=== PATIENT | male | born 1975 | race Caucasian/White ===

== ENCOUNTER → 2024-08-24 | Outpatient (CLI) | payer OTHER ==
[2024-08-24 16:29] LABS: BASOPHILS ABSOLUTE AUTO 0.05 K/mm3 (0.00-0.23); BASOPHILS PERCENT AUTO 1 % (0-2); EOSINOPHILS ABSOLUTE AUTO 0.15 K/mm3 (0.00-0.68); EOSINOPHILS PERCENT AUTO 3 % (0-6); Hemoglobin 14.2 g/dL (13.5-17.5); IMMATURE GRAN ABSOLUTE AUTO 0.02 K/mm3 (0.00-0.10); IMMATURE GRAN PERCENT AUTO 0 % (0-1); LYMPHOCYTES ABSOLUTE AUTO 1.62 K/mm3 (0.84-5.20); LYMPHOCYTES PERCENT AUTO 27 % (21-46); MONOCYTES ABSOLUTE AUTO 0.62 K/mm3 (0.16-1.47); MONOCYTES PERCENT AUTO 10 % (4-13); Mean Corpuscular HGB 31.1 pg (26.0-34.0); Mean Corpuscular HGB Conc 33.8 g/dL (31.5-36.5); Mean Corpuscular Volume 92 fL (80-100); Mean Platelet Volume 9.4 fL (9.1-12.4); NEUTROPHILS ABSOLUTE AUTO 3.59 K/mm3 (1.96-9.15); NEUTROPHILS PERCENT AUTO 59 % (41-73); Platelet Count 255 K/mm3 (150-400); RDW Coefficient Variation 13.5 % (11.7-14.2); RDW Standard Deviation 45.4 fL (35.1-46.3); Red Blood Cell Count 4.56 M/mm3 (4.30-5.90); White Blood Cell Count 6.05 K/mm3 (4.00-11.30)
[2024-08-24 16:44] LABS: Albumin, Blood 4.3 g/dL (3.4-5.0); Albumin/Globulin Ratio 1.3 (0.8-1.8); Bun/Creatinine Ratio 18.8 (12.0-20.0); Calcium, Blood 9.3 mg/dL (8.5-10.1); Creatinine, Blood 1.01 mg/dL (0.60-1.20); Globulin, Blood 3.3 g/dL (2.2-4.0); Total Protein, Blood 7.6 g/dL (6.4-8.2)
[2024-08-26 18:36] LABS: ANTI-NUCLEAR AB ANA,IGG ELISA None Detected (None Detected)
== END ==
LOC: LAB SHORT 16:24 → LAB 16:24
PROVIDERS: Physician Assistant
DX: M25.50 Pain in unspecified joint (principal)
CPT/HCPCS: 80053; 85025; 85651; 86038; 86140; 86430

== ENCOUNTER 2025-02-09 20:33 | Emergency (ER) | payer OTHER ==
[~2025-02-09] VITALS: Ht 182.9 cm; Wt 104.3 kg
[2025-02-09 20:37] VITALS: BP 153/91
[2025-02-09] MEDS ORDERED: Proparacaine 0.5% Opth Soln 15 ML BTL LEFTEYE ONE (21:05)
[2025-02-09] MEDS ORDERED: Fluorescein Sod 1MG Opth Strips LEFTEYE ONE (21:05)
[2025-02-09] MEDS ORDERED: GENTAMICIN SULFATE 0.1% TOP ONE (21:35)
[2025-02-09] MEDS ORDERED: GENT15TO TOP (21:37)
[2025-02-09] MEDS ORDERED: Gentamicin Sulfate 0.3% Opth Soln LEFTEYE ONE (22:05)
[2025-02-12] MEDS ORDERED: BACTRIM DS TAB1 EAC1 PO (16:33)
[2025-02-12] MEDS ORDERED: AMOCLA875 PO (16:33)
[2025-02-12] MEDS ORDERED: OXAYDO5 M1 PO (18:02)
[2025-02-13] MEDS ORDERED: AMOCLA875 PO (14:15)
[2025-02-13] MEDS ORDERED: BACTRIM DS TAB1 EAC1 PO (14:15)
[2025-02-13] MEDS ORDERED: OXAYDO5 M1 PO (14:15)
== END 2025-02-09 22:13 | disposition home or self-care (01) ==
LOC: ER 20:33
DX: H18.822 Corneal disorder due to contact lens, left eye (principal)
CPT/HCPCS: 99282; A9270; A9270-GY

== ENCOUNTER 2025-02-21 23:29 | Emergency (ER) | payer OTHER ==
[~2025-02-21] VITALS: Ht 172.7 cm; Wt 83.9 kg
[~2025-02-21 23:29] MED LIST: AMOCLA875 PO; BACTRIM DS TAB1 EAC1 PO; CLIN150 PO; ERYT.5TO LEFTEYE; GENT15TO TOP; L-MESITRAN SOFT50 GM TOP; OXAYDO5 M1 PO; SULTRIDS PO; VISBIOME 112.51 EACH PO
[2025-02-21 23:55] VITALS: BP 169/97
[2025-02-22] MEDS ORDERED: Trimethoprim/Sulfamethoxazole DS Tab PO ONE (00:25)
== END 2025-02-22 00:47 | disposition home or self-care (01) ==
LOC: ER 23:29
DX: H10.9 Unspecified conjunctivitis (principal); R60.0 Localized edema; Z79.2 Long term (current) use of antibiotics; Z79.899 Other long term (current) drug therapy
CPT/HCPCS: 99281; A9270